=== PATIENT | female | born 1985 | race Two or more races ===

== ENCOUNTER 2024-02-10 11:28 | Emergency (ER) | payer SELFPAY ==
[2024-02-10 11:41] VITALS: BP 127/75; PULSE 80; RESP 18; TEMP 98; BMI 29.1
== END 2024-02-10 15:00 | disposition home or self-care (01) ==
LOC: JERFT 11:28
DX: M79.661 Pain in right lower leg (principal); M79.89 Other specified soft tissue disorders; W19.XXXA Unspecified fall, initial encounter
CPT/HCPCS: 73590-TC-RT-FY; 99283-25